=== PATIENT | female | born 1985 | race Caucasian/White ===

== ENCOUNTER 2017-02-04 05:11 | Inpatient (IN) ==
[2017-02-01 13:25] LABS: MANUAL DIFF NEEDED? NO
[2017-02-01 13:32] LABS: BASO% 0.2 % (0.0-0.8); EOS# 0.16 X1000 (0.0-0.7); EOS% 1.4 % (0.0-10.0); HEMATOCRIT 37.7 % (37.0-47.0); HEMOGLOBIN 13.2 g/dL (12.0-16.0); IMM GRAN# 0.03 X1000 (0.0-0.04); IMM GRAN% 0.3 % (0.0-0.5); LYMPH# 2.58 X1000 (1.2-3.4); MCH 31.4 PG (27-31); MCV 89.8 FL (81-99); MONO# 0.62 X1000 (0.11-0.59); MONO% 5.3 % (1.7-9.3); MPV 9.7 FL (7.4-10.4); NEUT% 70.8 % (42.2-75.2); PLT 206 X1000 (130-400)
[2017-02-04] MEDS ORDERED: PEPCID PO ONE (05:13)
[2017-02-04] MEDS ORDERED: REGLAN PO ONE (05:13)
[2017-02-04] MEDS ORDERED: LR 1,000 ML IV SCH (05:13)
[2017-02-04] MEDS ORDERED: SODIUM CHLORIDE 0.9% INJ PRN (05:53)
[2017-02-04] MEDS ORDERED: BICITRA PO ONE (06:00)
[2017-02-04] MEDS ORDERED: PEPCID IV ONE (06:00)
[2017-02-04] MEDS ORDERED: CLINDAMYCIN 900 MG/NS 900 MG/50 ML IVPB IV ONE (06:06)
[2017-02-04 06:15] LABS: URINE SOURCE VOIDED
[2017-02-04 06:15] LABS: MANUAL DIFF NEEDED? NO
[2017-02-04 06:16] LABS: BASO% 0.2 % (0.0-0.8); EOS# 0.08 X1000 (0.0-0.7); EOS% 0.7 % (0.0-10.0); HEMATOCRIT 37.1 % (37.0-47.0); HEMOGLOBIN 13.2 g/dL (12.0-16.0); IMM GRAN# 0.03 X1000 (0.0-0.04); IMM GRAN% 0.3 % (0.0-0.5); LYMPH# 2.25 X1000 (1.2-3.4); LYMPH% 19.8 % (20.5-51.1); MCH 31.5 PG (27-31); MCHC 35.6 g/dL (33-37); MCV 88.5 FL (81-99); MONO# 0.62 X1000 (0.11-0.59); MONO% 5.5 % (1.7-9.3); MPV 10.6 FL (7.4-10.4); NEUT% 73.5 % (42.2-75.2); PLT 222 X1000 (130-400); RBC 4.19 XMIL (4.2-5.4)
[2017-02-04 06:25] LABS: BILIRUBIN URINE NEGATIVE (NEGATIVE); BLOOD URINE NEGATIVE (NEGATIVE); CLARITY SL. CLOUDY (CLEAR); COLOR YELLOW; GLUCOSE URINE NEGATIVE (NEGATIVE); LEUKOCYTES URINE TRACE (NEGATIVE); NITRITE URINE NEGATIVE (NEGATIVE); PH URINE 6.5; PROTEIN URINE NEGATIVE (NEGATIVE); SP GRAVITY URINE 1.015; UROBILINOGEN URINE NORMAL
[2017-02-04] MEDS ORDERED: DURAMORPH ONE (06:41)
[2017-02-04] MEDS ORDERED: PITOCIN ONE ×2 (07:15→08:00)
[2017-02-04] MEDS ORDERED: ZOFRAN ONE (07:30)
[2017-02-04] MEDS ORDERED: TORADOL ONE (08:08)
[2017-02-04] MEDS ORDERED: PITOCIN IM PRN (08:28)
[2017-02-04] MEDS ORDERED: PITOCIN 20 UNITS/LR 20 UNITS/1,000 ML IV.SOLN IV ONE (08:28)
[2017-02-04] MEDS ORDERED: M-M-R II VACCINE SUBQ ONE (08:28)
[2017-02-04] MEDS ORDERED: HYDROXYZINE IM PRN (08:28)
[2017-02-04] MEDS ORDERED: HYDROXYZINE PO PRN (08:28)
[2017-02-04] MEDS ORDERED: AMBIEN PO PRN (08:28)
[2017-02-04] MEDS ORDERED: PHENERGAN IM PRN (08:28)
[2017-02-04] MEDS ORDERED: BOOSTRIX VACCINE IM ONE (08:28)
[2017-02-04] MEDS ORDERED: DEMEROL PO PRN ×2 (08:28)
[2017-02-04] MEDS ORDERED: PERCOCET-5 PO PRN (08:28)
[2017-02-04] MEDS ORDERED: DEMEROL IM PRN (08:28)
[2017-02-04] MEDS ORDERED: DULCOLAX PR PRN (08:28)
[2017-02-04] MEDS ORDERED: MYLICON PO PRN (08:28)
[2017-02-04] MEDS ORDERED: NS 2,000 ML ONE (08:52)
[2017-02-04] MEDS ORDERED: ZOFRAN IV PRN ×2 (09:55)
[2017-02-04] MEDS ORDERED: ZOFRAN ODT PO PRN (09:55)
[2017-02-04] MEDS ORDERED: BENADRYL IV PRN (09:55)
[2017-02-04] MEDS ORDERED: NARCAN INJ PRN (09:55)
[2017-02-04] MEDS: MYLICON PO SCH ×4 (11:35→20:18)
[2017-02-04] MEDS: MORPHINE IV PRN ×2 (12:09→20:17)
[2017-02-04] MEDS: TORADOL IV SCH ×2 (14:27→20:18)
[2017-02-04] MEDS: PITOCIN 10 UNITS/LR 10 UNIT/1,000 ML IV.SOLN IV SCH ×2 (15:17→20:30)
[2017-02-04] MEDS ORDERED: LASIX IV ONE (17:03)
[2017-02-04] MEDS: CELEXA PO SCH (20:18)
[2017-02-04] MEDS: PERICOLACE PO SCH (20:18)
[2017-02-05] MEDS: TORADOL IV SCH (02:43)
[2017-02-05 06:00] LABS: MANUAL DIFF NEEDED? NO
[2017-02-05 06:24] LABS: BASO% 0.1 % (0.0-0.8); EOS% 0.7 % (0.0-10.0); HEMATOCRIT 32.3 % (37.0-47.0); HEMOGLOBIN 10.7 g/dL (12.0-16.0); IMM GRAN# 0.03 X1000 (0.0-0.04); IMM GRAN% 0.2 % (0.0-0.5); LYMPH# 1.86 X1000 (1.2-3.4); LYMPH% 12.3 % (20.5-51.1); MCH 30.1 PG (27-31); MCHC 33.1 g/dL (33-37); MONO# 0.78 X1000 (0.11-0.59); MONO% 5.1 % (1.7-9.3); MPV 10.3 FL (7.4-10.4); NEUT% 81.6 % (42.2-75.2); PLT 180 X1000 (130-400); RBC 3.55 XMIL (4.2-5.4)
[2017-02-05] MEDS: MYLICON PO SCH ×5 (07:36→20:12)
[2017-02-05] MEDS: MOTRIN PO PRN ×2 (07:37→17:59)
[2017-02-05] MEDS: PRECARE PO SCH ×2 (07:37→18:01)
[2017-02-05] MEDS ORDERED: LR 1,000 ML IV SCH (08:12)
[2017-02-05] MEDS: PERICOLACE PO SCH (18:00)
[2017-02-05] MEDS: CELEXA PO SCH (20:12)
[2017-02-06] MEDS: PERICOLACE PO SCH (00:16)
[2017-02-06] MEDS ORDERED: NEOSPORIN OINTMENT PACKET TOP PRN (02:17)
[2017-02-06] MEDS: MOTRIN PO PRN (02:37)
[2017-02-06] MEDS: PERCOCET-10 PO PRN ×2 (02:37→08:55)
[2017-02-06] MEDS: PRECARE PO SCH (08:55)
[2017-02-06] MEDS: MYLICON PO SCH (08:55)
[2017-02-06 09:04] VITALS: BP 119/68
== END 2017-02-06 12:55 | disposition home or self-care (01) ==
LOC: P.LD 05:11 → P.WC 10:48
PROVIDERS: ADMIT Obstetrics & Gynecology; ATTEND Obstetrics & Gynecology